=== PATIENT | female | born 1960 | race Caucasian/White ===

== ENCOUNTER 2018-03-26 12:04 | Emergency (ER) | payer OTHER ==
--- NOTE | 2018-03-26 12:24 | ED Physician Documentation ---
PD HPI BACK INJURY - Stated complaint Stated Complaint: LOWER BACK PX - History obtained from History obtained from: Patient - History of Present Illness Location: Lower Type of injury: Other (A large garden planter fell over and she bent over to a right it and felt the pain in her upper lumbar area. She has had prior surgery microdiscectomy in the area. She gets occasional flareups of pain. She denies any lower extremity paresis or paresthesias. She has not had any bowel or bladder incontinence. She states the pain goes from the mid back and the upper lumbar area around both sides and a little bit to the left hip. She has had episodes similar to this in the past that get treated with muscle relaxants and pain medicines. She currently takes medications for fibromyalgia. She saw her primary care for 5 days ago and was prescribed methocarbamol for it but is having spasms anyway.). No: Fall Where injury occurred: Home Timing - onset: How many weeks ago (1) Timing - details: Abrupt onset, Still present, Waxing and waning Quality: Pain, Spasm Worsened by: Moving, Palpating Associated symptoms: No: Fever, Weakness, Numbness, Incontinent of urine Contributing factors: Prior back surgery. No: Anticoagulated, Work related Similar symptoms before: Diagnosis (back spasms and disc problems) Recently seen: Clinic (4 days ago and Rx Robaxin without improvement.) Review of Systems Constitutional: denies: Fever, Chills GI: denies: Abdominal Pain : denies: Incontinent Musculoskeletal: reports: Back pain Neurologic: denies: Generalized weakness, Focal weakness, Numbness PD PAST MEDICAL HISTORY - Past Medical History Cardiovascular: None Respiratory: None Endocrine/Autoimmune: None GI: GERD, Chronic diarrhea, Other : None HEENT: None Psych: Depression, Anxiety, Panic attacks, Claustrophobia Musculoskeletal: Osteoarthritis, Fibromyalgia, Fatigue, Chronic back pain Derm: Psoriasis - Past Surgical History General: Colonoscopy Ortho: Arthroscopic surgery, Carpal Tunnel surgery, Spine surgery, Other HEENT: Tonsil/Adenoidectomy Derm: Skin cancer surgery - Present Medications Home Medications: Ambulatory Orders Medication Instructions Recorded Confirmed Etodolac 500 mg PO BID 07/20/15 03/26/18 LORazepam [Lorazepam] 1 mg PO DAILY 07/20/15 03/26/18 Pregabalin [Lyrica] 150 mg PO BID 07/20/15 03/26/18 Tramadol HCl [Ultram] 50 mg PO QPM 07/20/15 03/26/18 Zolpidem [Ambien] 10 mg PO HS 07/20/15 03/26/18 Cannabis Ointment 1 applic TOP DAILY 03/26/18 Dexamethasone [Decadron] 4 mg PO DAILY #5 tablet 03/26/18 HYDROcod/ACETAM 5/325 [[place] 5/325] 1 tab PO Q6H PRN #20 tablet 03/26/18 Methocarbamol [Robaxin] 3 tab PO Q4H 03/26/18 03/26/18 - Allergies Allergies/Adverse Reactions: Allergies Allergy/AdvReac Type Severity Reaction Status Date / Time No Known Drug Allergies Allergy Verified 03/26/18 12:22 PD ED PE NORMAL - Vitals Vital signs reviewed: Yes - General General: Alert and oriented X 3, No acute distress, Well developed/nourished - Abdomen Abdomen: Soft, Non tender - Back Back: No CVA TTP, Other (tender upper lumbar region both sides. No rash nor sores. No redness. ) - Derm Derm: Normal color, Warm and dry, No rash - Extremities Extremities: Normal ROM s pain, No edema, No calf tenderness / cord - Neuro Neuro: No motor deficit, No sensory deficit Results - Vitals Vitals: Vital Signs - 24 hr 03/26/18 03/26/18 12:06 13:15 Temperature 36.8 C Heart Rate 72 65 Respiratory 16 18 Rate Blood Pressure 143/88 H 134/75 H O2 Saturation 100 98 Oxygen O2 Source Room air PD MEDICAL DECISION MAKING - ED course Complexity details: considered differential (lower back pain without red flags, exac of prior back process. ) Departure - Departure Disposition: 01 Home, Self Care Clinical Impression: Lumbar back sprain Qualifiers: Encounter type: initial encounter Qualified Code(s): S33.5XXA - Sprain of ligaments of lumbar spine, initial encounter Condition: Stable Record reviewed to determine appropriate education?: Yes Instructions: ED Low Back Pain Injury Follow-Up: Carla Cheng PA-C [Primary Care Provider] - Prescriptions: Dexamethasone [Decadron] 4 mg PO DAILY #5 tablet HYDROcod/ACETAM 5/325 [[place] 5/325] 1 tab PO Q6H PRN #20 tablet PRN Reason: Pain Comments: Gentle range of motion with stretching for the back. Heat as feels improvement. Continue usual medications. Add Decadron also for inflammation for the next 5 days. Add hydrocodone if needed for pain. Continue in the physical treatments such as fascial release, massage or chiropractic. Follow- up with your primary care if not improved over the next week or so still. Discharge Date/Time: 03/26/18 13:15
[2018-03-26] MEDS ORDERED: KETOROLAC 60 MG/2 ML VIAL IM STA (12:48)
[2018-03-26] MEDS ORDERED: DEXAMETHASONE 10 MG/ML VIAL PO STA (12:49)
[2018-03-26] MEDS ORDERED: HYDROcod/ACETAM 7.5 MG/325 MG TABLET PO STA (12:49)
[2018-03-26 13:16] VITALS: BP 134/75
== END 2018-03-26 13:15 | disposition home or self-care (01) ==
LOC: ED 12:04
DX: S33.5XXA Sprain of ligaments of lumbar spine, initial encounter (principal); X50.1XXA Overexertion from prolonged static or awkward postures, initial encounter; Y93.89 Activity, other specified; Y92.009 Unspecified place in unspecified non-institutional (private) residence as the place of occurrence of the external cause; M79.7 Fibromyalgia; M19.90 Unspecified osteoarthritis, unspecified site
CPT/HCPCS: 96372; 99283; A9270

== ENCOUNTER 2018-03-30 11:13 | Outpatient (CLI) | payer OTHER ==
--- NOTE | 2018-03-30 17:54 | XRAY Report ---
COMPLETE LUMBAR SPINE: 03/30/2018 CLINICAL INDICATION: Back pain. FINDINGS: AP, lateral, oblique, cone-down views of the lumbar spine demonstrate moderate degenerative disk and facet disease. There is degenerative anterolisthesis of L4 on L5 by approximately 5 mm. There is no evidence of compression fracture. The bowel gas pattern appears unremarkable. IMPRESSION: MODERATE DEGENERATIVE CHANGES, WITH DEGENERATIVE ANTEROLISTHESIS OF L4 ON L5. TD: 03/30/2018 14:35
--- NOTE | 2018-03-30 17:55 | XRAY Report ---
SACRUM AND COCCYX: 03/30/2018 CLINICAL INDICATION: Back pain. FINDINGS: AP, oblique, lateral views of the sacrum and coccyx demonstrate no evidence of acute fracture. The sacral ala are preserved. Mild degenerative changes are seen in the sacroiliac joints and visualized hip joints. IMPRESSION: NO EVIDENCE OF FRACTURE. MILD DEGENERATIVE CHANGES. TD: 03/30/2018 14:36
== END 2018-03-30 11:14 | disposition home or self-care (01) ==
LOC: DI 11:13
PROVIDERS: ATTEND Nurse Practitioner Primary Care
DX: M51.36 Other intervertebral disc degeneration, lumbar region (principal); M43.16 Spondylolisthesis, lumbar region
CPT/HCPCS: 72110; 72220

== ENCOUNTER 2018-04-06 14:16 | Outpatient (CLI) | payer OTHER ==
--- NOTE | 2018-04-08 15:00 | DEXA Report ---
DEXA: 04/06/2018 CLINICAL INDICATION: Postmenopausal. TECHNIQUE: Dual energy x-ray absorptiometry (DXA) was performed on a [employer] system. Regions measured are the AP spine, femoral neck, and, if needed, forearm. COMPARISON: None. In accordance with the International Society for Clinical Densitometry (ISCD) guidelines, data from previous exams may be reanalyzed using current recommendations and techniques. This is done to allow a more accurate basis for comparison with the current study. FINDINGS Data for the lumbar spine is as follows: REGION BMD (g/cm/cm) T-SCORE Z-SCORE L1 0.629 -4.2 -3.2 L2 0.836 -3.0 -2.1 L3 1.033 -1.4 -0.4 L4 0.917 -2.4 -1.4 L1-L4 0.866 -2.6 -1.7 NOTE: All evaluable vertebrae are used for classification. The data for the hip is as follows: REGION BMD (g/cm/cm) T-SCORE Z-SCORE Neck 0.712 -2.3 -1.3 TOTAL 0.781 -1.8 -1.0 NOTE: The femoral neck or total proximal femur, whichever is lowest, is used for classification. IMPRESSION WHO CLASSIFICATION BASED ON THE INTERNATIONAL REFERENCE STANDARD IS OSTEOPOROSIS. FRACTURE RISK IS HIGH. RECOMMENDATION: Patients with diagnosis of osteoporosis or osteopenia should have regular bone mineral density assessment. For those eligible for Medicare, routine testing is allowed once every 2 years. Testing frequency can be increased for patients who have rapidly progressing disease or for those who are receiving medical therapy to restore bone mass. COMMENT World Health Organization (WHO) definitions for osteoporosis and osteopenia: NORMAL BMD: T-score at 1.0 or higher, fracture risk is low. OSTEOPENIA BMD: T-score between 1.0 and -2.5, fracture risk is increased. OSTEOPOROSIS BMD: T-score at 2.5 or lower, fracture risk high. National Osteoporosis Foundation recommends: 1. Obtain adequate dietary calcium (at least 1200 mg per day) and vitamin D (400 -800 international units per day). 2. Participate, as appropriate, in regular weightbearing and muscle- strengthening exercise. 3. Avoid tobacco use and reduce alcohol and caffeine intake. 4. For more detailed information see the website at www.NOF.org. TD: 04/06/2018 15:41 MTDD
== END 2018-04-06 14:17 | disposition home or self-care (01) ==
LOC: DI 14:16
PROVIDERS: ATTEND Physician Assistant
DX: M81.0 Age-related osteoporosis without current pathological fracture (principal); Z78.0 Asymptomatic menopausal state
CPT/HCPCS: 77080

== ENCOUNTER 2018-04-09 14:52 | Outpatient (CLI) | payer OTHER ==
--- NOTE | 2018-04-10 18:41 | Mammography Report ---
DIGITAL SCREENING MAMMOGRAPHY: 04/09/2018 TECHNIQUE: Bilateral digital CC, exaggerated CC and oblique lateral views are obtained. COMPARISON: 10/05/2015, 11/15/2012. FINDINGS: The breast tissue is heterogeneously dense. There is no dominant mass, architectural distortion, skin thickening, suspicious microcalcifications, or interval change. IMPRESSION: NEGATIVE. BIRADS category: 1, negative. Suggest return to routine screening in 12 months. STANDARD QUALIFYING STATEMENTS 1. This examination was reviewed with the aid of Computed-Aided Detection (CAD). 2. A negative or benign imaging report should not delay biopsy if clinically suspicious findings are present. Consider surgical consultation if warranted. More than 5% of cancers are not identified by imaging. 3. Dense breasts may obscure an underlying neoplasm. TD: 04/10/2018 17:24
== END 2018-04-09 14:53 | disposition home or self-care (01) ==
LOC: DI 14:52
PROVIDERS: ATTEND Physician Assistant
DX: Z12.31 Encounter for screening mammogram for malignant neoplasm of breast (principal)
CPT/HCPCS: 77067

== ENCOUNTER 2018-08-31 13:31 | Outpatient (CLI) | payer OTHER ==
[2018-08-31 13:54] LABS: BASOPHILS % (AUTO) 0.7 %; EOSINOPHILS # (AUTO) 0.3 10^3/uL (0.0-0.7); EOSINOPHILS % (AUTO) 4.6 %; HGB - HEMOGLOBIN 12.5 g/dL (12.0-16.0); LYMPHOCYTES # (AUTO) 1.9 10^3/uL (1.5-3.5); LYMPHOCYTES % (AUTO) 32.4 %; MEAN CORPUSCULAR HEMOGLOBIN 32.6 pg (27.0-31.0); MEAN CORPUSCULAR HGB CONC 34.9 g/dL (32.0-36.0); MEAN CORPUSCULAR VOLUME 93.3 fL (81.0-99.0); MONOCYTES # (AUTO) 0.5 10^3/uL (0.0-1.0); MONOCYTES % (AUTO) 9.3 %; PLT - PLATELET COUNT 180 10^3/uL (130-450); RED BLOOD COUNT 3.83 10^6/uL (4.20-5.40); RED CELL DISTRIBUTION WIDTH 13.2 % (12.0-15.0); WHITE BLOOD COUNT 5.7 x10^3/uL (4.8-10.8)
[2018-08-31 14:13] LABS: ALBUMIN 3.9 g/dL (3.2-5.5); ALBUMIN/GLOBULIN RATIO 1.4 (1.0-2.2); ALKALINE PHOSPHATASE 76 IU/L (42-121); ALT ALANINE AMINOTRANSFERASE 37 IU/L (10-60); AST ASPARTATE AMINOTRANSFERASE 30 IU/L (10-42); BILIRUBIN,TOTAL 0.9 mg/dL (0.2-1.0); BUN - BLOOD UREA NITROGEN 11 mg/dL (6-20); CALCIUM 8.9 mg/dL (8.5-10.3); CARBON DIOXIDE - CO2 29 mmol/L (21-32); CHLORIDE 96 mmol/L (101-111); CHOL/HDL RATIO 3.1 (<4.4); CHOLESTEROL 242 mg/dL; CREATININE 0.6 mg/dL (0.4-1.0); GFR - MDRD 102 (>89); GLUCOSE 109 mg/dL (70-100); HDL CHOLESTEROL 78 mg/dL; LDL CHOLESTEROL,CALCULATED 139 mg/dL; LDL/HDL RATIO 1.8 (<4.4); SODIUM 132 mmol/L (135-145); TOTAL PROTEIN 6.6 g/dL (6.7-8.2); VLDL CHOLESTEROL 25 mg/dL
== END 2018-08-31 13:32 | disposition home or self-care (01) ==
LOC: LAB 13:31
PROVIDERS: ATTEND Nurse Practitioner Primary Care
DX: E78.5 Hyperlipidemia, unspecified (principal); Z79.899 Other long term (current) drug therapy; Z13.29 Encounter for screening for other suspected endocrine disorder
CPT/HCPCS: 36415; 80053; 80061; 83721; 84443; 85025

== ENCOUNTER 2019-02-19 11:52 | Outpatient (CLI) | payer OTHER ==
[2019-02-19 19:10] LABS: BASOPHILS % (AUTO) 0.6 %; EOSINOPHILS # (AUTO) 0.3 10^3/uL (0.0-0.7); EOSINOPHILS % (AUTO) 5.1 %; HGB - HEMOGLOBIN 12.9 g/dL (12.0-16.0); MEAN CORPUSCULAR HGB CONC 33.3 g/dL (32.0-36.0); MEAN CORPUSCULAR VOLUME 95.9 fL (81.0-99.0); MEAN PLATELET VOLUME 9.9 fL (7.9-10.8); MONOCYTES # (AUTO) 0.6 10^3/uL (0.0-1.0); MONOCYTES % (AUTO) 8.9 %; NEUTROPHILS # (AUTO) 3.3 10^3/uL (1.5-6.6); NEUTROPHILS % (AUTO) 53.4 %; PLT - PLATELET COUNT 197 10^3/uL (130-450); RED BLOOD COUNT 4.03 10^6/uL (4.20-5.40); RED CELL DISTRIBUTION WIDTH 13.7 % (12.0-15.0); WHITE BLOOD COUNT 6.2 x10^3/uL (4.8-10.8)
[2019-02-19 19:40] LABS: ALBUMIN 3.6 g/dL (3.2-5.5); ALBUMIN/GLOBULIN RATIO 1.2 (1.0-2.2); ALKALINE PHOSPHATASE 73 IU/L (42-121); ALT ALANINE AMINOTRANSFERASE 30 IU/L (10-60); AST ASPARTATE AMINOTRANSFERASE 35 IU/L (10-42); BILIRUBIN,TOTAL 0.5 mg/dL (0.2-1.0); BUN - BLOOD UREA NITROGEN 18 mg/dL (6-20); CARBON DIOXIDE - CO2 30 mmol/L (21-32); CHLORIDE 99 mmol/L (101-111); CHOLESTEROL 214 mg/dL; CREATININE 0.6 mg/dL (0.4-1.0); GFR - MDRD 102 (>89); GLUCOSE 94 mg/dL (70-100); HDL CHOLESTEROL 71 mg/dL; LDL CHOLESTEROL,CALCULATED 115 mg/dL; LDL/HDL RATIO 1.6 (<4.4); SODIUM 136 mmol/L (135-145); TOTAL PROTEIN 6.5 g/dL (6.7-8.2); VLDL CHOLESTEROL 28 mg/dL
== END 2019-02-19 11:53 | disposition home or self-care (01) ==
LOC: LAB.WCP 11:52
PROVIDERS: ATTEND Physician Assistant
DX: Z00.00 Encounter for general adult medical examination without abnormal findings (principal); R03.0 Elevated blood-pressure reading, without diagnosis of hypertension; E78.5 Hyperlipidemia, unspecified
CPT/HCPCS: 36415; 80053; 80061; 83721; 84443; 85025

== ENCOUNTER 2019-06-04 14:06 | Emergency (ER) | payer OTHER ==
--- NOTE | 2019-06-04 14:23 | ED Physician Documentation ---
PD HPI SKIN - Stated complaint Stated Complaint: MED REACTION - Chief complaint Chief Complaint: Allergic Rx - History obtained from History obtained from: Patient - History of Present Illness Timing - onset: Other (She was seen yesterday morning early for a cellulitis of the left lower extremity which is improving placed on Bactrim. Ever since then within a couple of hours taking Bactrim she feels shaky and like she is drunk and has a rapid heart rate subjectively. No rash. The cellulitis is improving. She is adamant that this is a spider bite.) Review of Systems Constitutional: denies: Fever, Chills Throat: reports: Reviewed and negative Cardiac: reports: Reviewed and negative Respiratory: reports: Reviewed and negative PD PAST MEDICAL HISTORY - Past Medical History Cardiovascular: None Respiratory: None Endocrine/Autoimmune: None GI: GERD, Chronic diarrhea, Other : None HEENT: None Psych: Depression, Anxiety, Panic attacks, Claustrophobia Musculoskeletal: Osteoarthritis, Fibromyalgia, Fatigue, Chronic back pain Derm: Psoriasis - Past Surgical History Past Surgical History: Yes General: Colonoscopy Ortho: Arthroscopic surgery, Carpal Tunnel surgery, Spine surgery, Other HEENT: Tonsil/Adenoidectomy Derm: Skin cancer surgery - Present Medications Home Medications: Ambulatory Orders Medication Instructions Recorded Confirmed Etodolac 500 mg PO BID 07/20/15 03/26/18 LORazepam [Lorazepam] 1 mg PO DAILY 07/20/15 03/26/18 Pregabalin [Lyrica] 150 mg PO BID 07/20/15 03/26/18 Tramadol HCl [Ultram] 50 mg PO QPM 07/20/15 03/26/18 Zolpidem [Ambien] 10 mg PO HS 07/20/15 03/26/18 Cannabis Ointment 1 applic TOP DAILY 03/26/18 HYDROcod/ACETAM 5/325 [[place] 5/325] 1 tab PO Q6H PRN #20 tablet 03/26/18 Methocarbamol [Robaxin] 3 tab PO Q4H 03/26/18 03/26/18 dexAMETHasone [Decadron] 4 mg PO DAILY #5 tablet 03/26/18 Sulfamethox/Trimeth 800/160 1 each PO BID #14 tablet 06/02/19 [Bactrim Ds 800/160] Amox/Clav 875/125 [Augmentin] 1 each PO Q12H #10 tablet 06/04/19 - Allergies Allergies/Adverse Reactions: Allergies Allergy/AdvReac Type Severity Reaction Status Date / Time sulfamethoxazole Allergy Anxiety Verified 06/04/19 14:14 [From Bactrim] trimethoprim [From Bactrim] Allergy Anxiety Verified 06/04/19 14:14 - Social History Does the pt smoke?: No Smoking Status: Never smoker Does the pt drink ETOH?: No Does the pt have substance abuse?: No - Immunizations Immunizations are current?: Yes - POLST Patient has POLST: No PD ED PE NORMAL - Vitals Vital signs reviewed: Yes - General General: Alert and oriented X 3, No acute distress - HEENT HEENT: Pharynx benign - Cardiac Cardiac: RRR, No murmur - Respiratory Respiratory: No respiratory distress, Clear bilaterally - Abdomen Abdomen: Non tender - Derm Derm: No rash (No diffuse rash, there is a small area about 3 cm in diameter of what appears to be an allergic reaction that is local to the left medial thigh, no evidence of abscess.) - Neuro Neuro: Alert and oriented X 3, Normal speech Results - Vitals Vitals: Vital Signs - 24 hr 06/04/19 14:07 Temperature 37 C Heart Rate 70 Respiratory 17 Rate Blood Pressure 141/83 H O2 Saturation 97 Oxygen O2 Source Room air PD MEDICAL DECISION MAKING - ED course ED course: She refused steroids based on potential side effects. Departure - Departure Disposition: 01 Home, Self Care Clinical Impression: Medication reaction Qualifiers: Encounter type: initial encounter Qualified Code(s): T50.905A - Adverse effect of unspecified drugs, medicaments and biological substances, initial encounter Condition: Good Record reviewed to determine appropriate education?: Yes Instructions: ED Drug React Allergic Prescriptions: Amox/Clav 875/125 [Augmentin] 1 each PO Q12H #10 tablet Comments: Call your doctor to arrange a follow-up appointment, make the next available appointment. In the interim, return anytime if worse or if new symptoms devel op.
[2019-06-04 14:36] VITALS: BP 141/70
== END 2019-06-04 14:35 | disposition home or self-care (01) ==
LOC: ED 14:06
DX: R44.8 Other symptoms and signs involving general sensations and perceptions (principal); T50.905A Adverse effect of unspecified drugs, medicaments and biological substances, initial encounter
CPT/HCPCS: 99282; 99284

== ENCOUNTER 2019-10-01 09:00 | Outpatient (CLI) | payer OTHER ==
[2019-10-01 18:44] LABS: BASOPHILS % (AUTO) 0.7 %; EOSINOPHILS # (AUTO) 0.2 10^3/uL (0.0-0.7); EOSINOPHILS % (AUTO) 3.8 %; HGB - HEMOGLOBIN 12.2 g/dL (12.0-16.0); LYMPHOCYTES # (AUTO) 1.8 10^3/uL (1.5-3.5); LYMPHOCYTES % (AUTO) 30.4 %; MEAN CORPUSCULAR HEMOGLOBIN 32.1 pg (27.0-31.0); MEAN CORPUSCULAR HGB CONC 33.7 g/dL (32.0-36.0); MEAN CORPUSCULAR VOLUME 95.3 fL (81.0-99.0); MEAN PLATELET VOLUME 10.9 fL (7.9-10.8); MONOCYTES # (AUTO) 0.6 10^3/uL (0.0-1.0); MONOCYTES % (AUTO) 10.4 %; NEUTROPHILS # (AUTO) 3.1 10^3/uL (1.5-6.6); NEUTROPHILS % (AUTO) 54.2 %; PLT - PLATELET COUNT 235 10^3/uL (130-450); RED CELL DISTRIBUTION WIDTH 13.3 % (12.0-15.0); WHITE BLOOD COUNT 5.8 x10^3/uL (4.8-10.8)
[2019-10-01 18:57] LABS: ALBUMIN 4.1 g/dL (3.2-5.5); ALBUMIN/GLOBULIN RATIO 1.4 (1.0-2.2); BILIRUBIN,TOTAL 0.6 mg/dL (0.2-1.0); CALCIUM 8.8 mg/dL (8.5-10.3); CREATININE 0.5 mg/dL (0.4-1.0); TOTAL PROTEIN 7.1 g/dL (6.7-8.2)
== END 2019-10-01 23:59 | disposition home or self-care (01) ==
LOC: LAB.WCP 09:00
PROVIDERS: ATTEND Physician Assistant
DX: Z79.899 Other long term (current) drug therapy (principal); M81.0 Age-related osteoporosis without current pathological fracture
CPT/HCPCS: 36415; 80053; 82306; 85025

== ENCOUNTER 2019-10-01 12:45 | Outpatient (CLI) | payer OTHER ==
--- NOTE | 2019-10-01 17:10 | DEXA Report ---
Reason: ROUTINE MAMMO Procedure Date: 10/01/2019 Accession Number: [id number] / [id number] Procedure: DEX - Dexa Spine and/or Hip CPT Code: Final Report FULL RESULT: EXAM: Dexa Spine and/or Hip DATE: 10/01/2019 1:17 PM CLINICAL HISTORY: Osteoporosis TECHNIQUE: Dual energy x-ray absorptiometry (DXA) was performed on a [employer] System. Regions measured are the AP Spine, femoral neck, and if needed forearm. COMPARISON: 04/06/2018 In accordance with the International Society for Clinical Densitometry (ISCD) guidelines, data from previous exams may be reanalyzed using current recommendations and techniques. This is done to allow a more accurate basis for comparison with the current study. FINDINGS: The data for the lumbar spine is as follows: BMD (g/cm/cm) T-SCORE Z-SCORE REGION L1 0.781 -2.9 -2.0 L2 0.657 -4.5 -3.6 L3 0.840 -3.0 -2.1 L4 0.900 -2.5 -1.6 TOTAL 0.817 -3.0 -2.1 NOTE: All evaluable vertebrae are used for classification The data for the hip is as follows: BMD (g/cm/cm) T-SCORE Z-SCORE REGION Neck 0.681 -2.6 -1.5 TOTAL 0.764 -1.9 -1.2 NOTE: The femoral neck or total proximal femur, whichever is lowest, is used for classification. DXA RESULTS SUMMARY: Spine SCAN DATE AGE BMD CHANGE VS CHANGE VS PREVIOUS PREVIOUS % [birth year]01/2019 59.1 0.817 -0.049* -5.7* 04/06/2018 59.6 0.866 * Denotes significant change at the 95% confidence level. Denotes dissimilar scan types or analysis methods. DXA RESULTS SUMMARY: Hip SCAN DATE AGE BMD CHANGE VS CHANGE VS PREVIOUS PREVIOUS % [birth year]2019 61.1 0.764 -0.017 -2.2 04/06/2018 59.6 0.781 * Denotes significant change at the 95% confidence level. Denotes dissimilar scan types or analysis methods. IMPRESSION: 1. THE WHO CLASSIFICATION BASED ON THE INTERNATIONAL REFERENCE STANDARD IS OSTEOPOROSIS. THE FRACTURE RISK IS HIGH. 2. THERE HAS BEEN A STATISTICALLY SIGNIFICANT DECLINE IN BONE MARROW DENSITY SINCE THE PRIOR STUDY BASED ON DATA FROM THE LUMBAR SPINE. RECOMMENDATION: Patients with diagnosis of osteoporosis or osteopenia should have regular bone mineral density assessment. For those eligible for Medicare, routine testing is allowed once every 2 years. Testing frequency can be increased for patients who have rapidly progressing disease or for those who are receiving medical therapy to restore bone mass. COMMENT: World Health Organization (WHO) definitions for osteoporosis and osteopenia: NORMAL BMD: T-score at -1.0 or higher, fracture risk is low OSTEOPENIA BMD: T-score between -1.0 and -2.5, fracture risk is increased. OSTEOPOROSIS BMD: T-score at -2.5 or lower, fracture risk is high. National Osteoporosis Foundation recommends: 1. Obtain adequate dietary calcium (at least 1200 mg per day) and vitamin D (400-800 international units per day). 2. Participate, as appropriate, in regular weightbearing and muscle-strengthening exercise. 3. Avoid tobacco use and reduce alcohol and caffeine intake. 4. For more detailed information see the website at www.NOF.org.
== END 2019-10-01 12:46 | disposition home or self-care (01) ==
LOC: DI 12:45
PROVIDERS: ATTEND Physician Assistant
DX: M81.0 Age-related osteoporosis without current pathological fracture (principal); Z79.899 Other long term (current) drug therapy
CPT/HCPCS: 36415; 77080; 80053; 82306; 85025

== ENCOUNTER 2020-04-30 12:25 | Outpatient (CLI) | payer OTHER ==
--- NOTE | 2020-04-30 14:05 | XRAY Report ---
Reason: LEFT FOOT PAIN Procedure Date: 04/30/2020 Accession Number: [id number] / [id number] Procedure: WCP - Foot 3 View LT CPT Code: Final Report FULL RESULT: PROCEDURE: Foot 3 View LT INDICATIONS: LEFT FOOT PAIN TECHNIQUE: 3 views of the foot were acquired. COMPARISON: None FINDINGS: Bones: There is a minimally displaced fracture at the distal third metatarsal diaphysis. No other fracture or dislocation. Mild degenerative changes present at the first MTP joint. Soft tissues: No tibiotalar joint effusion. Achilles tendon appears normal. IMPRESSION: 1. Minimally displaced distal left third metatarsal diaphyseal fracture. 2. Mild degenerative change. Reviewed by: Celena Damon MD on 04/30/2020 2:03 PM PDT Approved by: Celena Damon MD on 04/30/2020 2:03 PM PDT Station ID: [id number]
== END 2020-04-30 23:59 | disposition home or self-care (01) ==
LOC: DI.WCP 12:25
PROVIDERS: ATTEND Nurse Practitioner Family
DX: S92.332A Displaced fracture of third metatarsal bone, left foot, initial encounter for closed fracture (principal)

== ENCOUNTER 2020-05-06 12:15 | Outpatient (CLI) | payer OTHER ==
--- NOTE | 2020-05-06 13:09 | XRAY Report ---
Reason: LEFT FOOT FRACTURE Procedure Date: 05/06/2020 Accession Number: [id number] / [id number] Procedure: WCP - Foot 3 View LT CPT Code: Final Report FULL RESULT: PROCEDURE: Foot 3 View LT INDICATIONS: LEFT FOOT FRACTURE TECHNIQUE: 3 views of the foot were acquired. COMPARISON: 04/30/2020 foot radiographs FINDINGS: Bones: Displaced fracture of the left third metatarsal is in unchanged alignment with no evidence of interval healing. Remaining osseous structures intact. Soft tissues: No tibiotalar joint effusion. Achilles tendon appears normal. IMPRESSION: No change in appearance of displaced left third metatarsal fracture. No evidence of interval healing. Unchanged alignment. Reviewed by: Madan Narayanan MD on 05/06/2020 1:08 PM PDT Approved by: Madan Narayanan MD on 05/06/2020 1:08 PM PDT Station ID: [id number]
== END 2020-05-06 23:59 | disposition home or self-care (01) ==
LOC: DI.WCP 12:15
PROVIDERS: ATTEND Physician Assistant
DX: S92.812D Other fracture of left foot, subsequent encounter for fracture with routine healing (principal)

== ENCOUNTER → 2020-08-06 | Outpatient (CLI) | payer OTHER ==
[2020-08-06 18:37] LABS: BASOPHILS % (AUTO) 0.5 %; EOSINOPHILS # (AUTO) 0.2 10^3/uL (0.0-0.7); EOSINOPHILS % (AUTO) 2.5 %; HGB - HEMOGLOBIN 13.1 g/dL (12.0-16.0); LYMPHOCYTES % (AUTO) 31.4 %; MEAN CORPUSCULAR HEMOGLOBIN 32.7 pg (27.0-31.0); MEAN CORPUSCULAR HGB CONC 34.3 g/dL (32.0-36.0); MEAN CORPUSCULAR VOLUME 95.3 fL (81.0-99.0); MEAN PLATELET VOLUME 10.9 fL (7.9-10.8); MONOCYTES # (AUTO) 0.5 10^3/uL (0.0-1.0); MONOCYTES % (AUTO) 8.1 %; NEUTROPHILS # (AUTO) 3.6 10^3/uL (1.5-6.6); NEUTROPHILS % (AUTO) 57.3 %; PLT - PLATELET COUNT 232 10^3/uL (130-450); RED BLOOD COUNT 4.01 10^6/uL (4.20-5.40); RED CELL DISTRIBUTION WIDTH 13.7 % (12.0-15.0); WHITE BLOOD COUNT 6.3 x10^3/uL (4.8-10.8)
[2020-08-06 18:39] LABS: ALBUMIN 4.2 g/dL (3.2-5.5); ALBUMIN/GLOBULIN RATIO 1.4 (1.0-2.2); ALKALINE PHOSPHATASE 69 IU/L (42-121); ALT ALANINE AMINOTRANSFERASE 29 IU/L (10-60); AST ASPARTATE AMINOTRANSFERASE 23 IU/L (10-42); BILIRUBIN,TOTAL 0.5 mg/dL (0.2-1.0); BUN - BLOOD UREA NITROGEN 15 mg/dL (6-20); CALCIUM 9.4 mg/dL (8.5-10.3); CARBON DIOXIDE - CO2 29 mmol/L (21-32); CHLORIDE 96 mmol/L (101-111); CHOL/HDL RATIO 2.7 (<4.4); CHOLESTEROL 197 mg/dL; CREATININE 0.7 mg/dL (0.4-1.0); GLUCOSE 99 mg/dL (70-100); HDL CHOLESTEROL 72 mg/dL; LDL CHOLESTEROL,CALCULATED 97 mg/dL; LDL/HDL RATIO 1.3 (<4.4); SODIUM 133 mmol/L (135-145); TOTAL PROTEIN 7.1 g/dL (6.7-8.2); VLDL CHOLESTEROL 28 mg/dL
== END ==
LOC: LAB.WCP 12:29
PROVIDERS: ATTEND Physician Assistant
DX: Z00.00 Encounter for general adult medical examination without abnormal findings (principal); M79.7 Fibromyalgia; Z13.29 Encounter for screening for other suspected endocrine disorder
CPT/HCPCS: 36415; 80053; 80061; 83721; 84443; 85025

== ENCOUNTER 2020-09-21 11:27 | Outpatient (CLI) | payer OTHER ==
--- NOTE | 2020-09-22 15:08 | Mammography Report ---
BILATERAL DIGITAL DIAGNOSTIC MAMMOGRAM 3D/2D: 09/21/2020 CLINICAL: Diffuse left breast pain. Comparison is made to exams dated: 04/09/2018 mammogram, 10/05/2015 mammogram, and 11/15/2012 mammogram - [facility]. The tissue of both breasts is heterogeneously dense. This may lower the sensitivity of mammography. No significant masses, calcifications, or other findings are seen in either breast. Benign appearing calcifications in the left breast. IMPRESSION: NEGATIVE There is no mammographic evidence of malignancy. No new abnormality in the left breast with diffuse post traumatic pain. Exam findings were conveyed to the patient. Patient is advised to monitor for significant change. A 1 year screening mammogram is recommended. Clinical follow-up as needed. This exam was interpreted at Station ID: [id number]. NOTE: For mammograms, a report in lay terms will be sent to the patient. Approximately 15% of breast malignancies will not be visualized mammographically. In the management of a palpable breast mass, a negative mammogram must not discourage biopsy of a clinically suspicious lesion. Electronically Signed By: Lionel Gray M.D. slc/:09/21/2020 12:03:30 ACR BI-RADS Category 1: Negative 3341F PARENCHYMAL PATTERN: (D) - The breast(s) demonstrate(s) heterogeneously dense fibroglandular daniel hummel. BI-RADS CATEGORY: (1) - 1 RECOMMENDATION: (ANNUAL) - Recommend routine annual screening mammography. [id number] 1 year screening LATERALITY: (B)
== END 2020-09-21 11:28 | disposition home or self-care (01) ==
LOC: DI 11:27
PROVIDERS: ATTEND Physician Assistant
DX: N64.4 Mastodynia (principal)
CPT/HCPCS: 77066

== ENCOUNTER 2020-10-26 08:00 | Outpatient (CLI) | payer OTHER ==
[2020-10-26 21:41] LABS: GLUCOSE, URINE (UA) NEGATIVE (NEGATIVE); KETONES,URINE (UA) NEGATIVE (NEGATIVE); LEUKOCYTE ESTERASE, URINE NEGATIVE (NEGATIVE); NITRITE,URINE NEGATIVE (NEGATIVE); OCCULT BLOOD,URINE NEGATIVE (NEGATIVE); PH,URINE 8.5 PH (5.0-7.5); PROTEIN,URINE NEGATIVE (NEGATIVE); UROBILINOGEN,URINE 0.2 (NORMAL) E.U./dL (NORMAL)
[2020-10-26 21:47] LABS: BILIRUBIN,URINE MODERATE (NEGATIVE); CLARITY,URINE CLEAR (CLEAR); ICTOTEST,URINE POSITIVE
== END 2020-10-26 23:59 ==
LOC: LAB.R 08:00
PROVIDERS: ATTEND Nurse Practitioner
DX: R30.0 Dysuria (principal)
CPT/HCPCS: 81001; 81003; 87086

== ENCOUNTER 2021-07-09 08:54 | Day surgery (SDC) | payer OTHER ==
[2021-07-09] MEDS ORDERED: LACTATED RINGERS 1,000 ML IV ONE ×2 (08:59→11:14)
--- NOTE | 2021-07-09 09:34 | ANESTHESIA ---
Pre-Anesthesia VS, & Labs - Diagnosis screening colonoscopy - Procedure colonoscopy Vital Signs: Temp Pulse Resp BP Pulse Ox 36.1 C L 66 14 125/79 100 07/09/21 09:05 07/09/21 09:05 07/09/21 09:05 07/09/21 09:05 07/09/21 09:05 Height: 5 ft 5 in Weight (kg): 61.5 kg Body Mass Index: 22.5 BMI Classification: Healthy weight - NPO >8 hours - Is Patient ?: No Home Medications and Allergies Home Medications: Ambulatory Orders Ascorbic Acid [Vitamin C] 1,000 mg PO DAILY 07/08/21 Calcium Carbonate/Vitamin D3 [Calcium 250-Vit D3 125 Tablet] 600 mg PO BID 07/08/21 DULoxetine [Cymbalta] 30 mg PO BID 07/08/21 Magnesium 250 mg PO DAILY 07/08/21 Tumeric/Ging/[place]/Oreg/Capryl [Candicidal Capsule] 1 each PO DAILY 07/08/21 Zinc Gluconate [Zinc] 30 mg PO DAILY 07/08/21 Etodolac 500 mg PO BID 07/20/15 LORazepam [Lorazepam] 1 mg PO DAILY 07/20/15 Pregabalin [Lyrica] 150 mg PO BID 07/20/15 Tramadol HCl [Ultram] 50 mg PO QPM 07/20/15 Zolpidem [Ambien] 10 mg PO HS 07/20/15 Cannabis Ointment 1 applic TOP DAILY 03/26/18 Ascorbic Acid [Vitamin C] 1,000 mg PO DAILY 07/08/21 Calcium Carbonate/Vitamin D3 [Calcium 250-Vit D3 125 Tablet] 600 mg PO BID 07/08/21 DULoxetine [Cymbalta] 30 mg PO BID 07/08/21 Magnesium 250 mg PO DAILY 07/08/21 Tumeric/Ging/[place]/Oreg/Capryl [Candicidal Capsule] 1 each PO DAILY 07/08/21 Zinc Gluconate [Zinc] 30 mg PO DAILY 07/08/21 Allergies/Adverse Reactions: Allergies Allergy/AdvReac Type Severity Reaction Status Date / Time sulfamethoxazole Allergy Anxiety Verified 06/04/19 14:14 [From Bactrim] trimethoprim [From Bactrim] Allergy Anxiety Verified 06/04/19 14:14 Anes History & Medical History - Anesthetic History Anesthesia Complications: reports: No previous complications - Medical History Cardiovascular: reports: None Pulmonary: reports: None Gastrointestinal: reports: GERD, Other Urinary: reports: Frequency Musculoskeletal: reports: Osteoarthritis, Fibromyalgia, Fatigue, Chronic back pain Endocrine/Autoimmune: reports: None Skin: reports: Other Smoking Status: Never smoker History of Cancer?: Yes - Surgical History General: reports: Colonoscopy Eyes Ears Nose Throat (EENT): reports: Tonsil/Adenoidectomy Orthopedic: reports: Other Dermatologic: reports: Skin cancer surgery Exam General: Alert, Oriented x3 Dental: WNL Mouth Opening: Greater than 4 Fingerbreadths Neck Mobility: Normal Mallampati classification: II Respiratory: Lungs clear Cardiovascular: Regular rate Plan Anesthesia Type: Total IV Consent for Procedure(s) Verified and Reviewed: Yes Code Status: Attempt Resuscitation ASA classification: 2-Mild systemic disease Is this case an emergency?: No
[2021-07-09] MEDS ORDERED: MIDAZOLAM 2 MG/2 ML VIAL ONE (09:49)
--- NOTE | 2021-07-09 09:57 | HISTORY & PHYSICAL EXAMINATION ---
Chief Complaint - Chief Complaint Chief Complaint: here for colon cancer screening History of Present Illness - History Obtained From Records Reviewed: yes History obtained from: pt Exam Limitations: none - History of Present Illness HPI Comment/Other: Here for colon cancer screening. No anemia. History - Past Medical History Cardiovascular: reports: None Respiratory: reports: None Endocrine/Autoimmune: reports: None GI: reports: GERD, Other : reports: Frequency HEENT: reports: None Psych: reports: Depression, Anxiety, Panic attacks, Claustrophobia Musculoskeletal: reports: Osteoarthritis, Fibromyalgia, Fatigue, Chronic back pain Derm: reports: Other MRSA Hx?: No - Past Surgical History General: reports: Colonoscopy Ortho: reports: Other HEENT: reports: Tonsil/Adenoidectomy Derm: reports: Skin cancer surgery - POLST Patient has POLST: No Meds/Allgy - Home Medications Home Medications: Ambulatory Orders Medication Instructions Recorded Confirmed Etodolac 500 mg PO BID 07/20/15 07/08/21 LORazepam [Lorazepam] 1 mg PO DAILY 07/20/15 07/09/21 Pregabalin [Lyrica] 150 mg PO BID 07/20/15 07/08/21 Tramadol HCl [Ultram] 50 mg PO QPM 07/20/15 07/08/21 Zolpidem [Ambien] 10 mg PO HS 07/20/15 07/08/21 Cannabis Ointment 1 applic TOP DAILY 03/26/18 07/08/21 Ascorbic Acid [Vitamin C] 1,000 mg PO DAILY 07/08/21 07/08/21 Calcium Carbonate/Vitamin D3 600 mg PO BID 07/08/21 07/08/21 [Calcium 250-Vit D3 125 Tablet] DULoxetine [Cymbalta] 30 mg PO BID 07/08/21 07/08/21 Magnesium 250 mg PO DAILY 07/08/21 07/08/21 Tumeric/Ging/[place]/Oreg/Capryl 1 each PO DAILY 07/08/21 07/08/21 [Candicidal Capsule] Zinc Gluconate [Zinc] 30 mg PO DAILY 07/08/21 07/08/21 - Allergies Allergies/Adverse Reactions: Allergies Allergy/AdvReac Type Severity Reaction Status Date / Time sulfamethoxazole Allergy Anxiety Verified 06/04/19 14:14 [From Bactrim] trimethoprim [From Bactrim] Allergy Anxiety Verified 06/04/19 14:14 Review of Systems - Other Findings Other Findings: 10 pt ros as above otherwise unremarkable Exam - Vital Signs Reviewed Vital Signs: Yes Vital Signs: Vital Signs x48h Temp Pulse Resp BP Pulse Ox 07/09/21 09:05 36.1 C L 66 14 125/79 100 - Physical Exam General Appearance: positive: Alert Eyes Bilateral: positive: PERRL, EOMI ENT: positive: No signs of dehydration Neck: positive: No JVD Respiratory: positive: No respiratory distress, Breath sounds nml Cardiovascular: positive: Regular rate & rhythm Abdomen: positive: Non-tender, No distention Neurologic/Psychiatric: positive: Oriented x3 Conclusion/Plan - Problem List (1) Colon cancer screening Conclusion/Plan: Plan colonscopy. parq held and consent obtained
[2021-07-09] MEDS ORDERED: GLYCOPYRROLATE 1 MG/5 ML VIAL ONE (10:53)
[2021-07-09] MEDS ORDERED: PROPOFOL 1000 MG/100 ML 1,000 MG/100 ML BOTTLE IV ONE (10:53)
[2021-07-09] MEDS ORDERED: LACTATED RINGERS 75 ML IV ONE (11:05)
[2021-07-09] MEDS ORDERED: IOVERSOL 320 50 ML VIAL ONE (13:02)
--- NOTE | 2021-07-09 13:14 | ANESTHESIA POST OP EVALUATION ---
Anesthesia Post Eval - Post Anesthesia Eval Vitals: Last Vital Signs Temp 36.2 C L 07/09/21 12:45 Pulse 88 07/09/21 12:45 Resp 12 07/09/21 12:45 BP 108/69 07/09/21 12:45 Pulse Ox 99 07/09/21 12:45 CV Function Including HR & BP: Stable Pain Control: Satisfactory Nausea & Vomiting: Negative Mental Status: Baseline Respiratory Status: Airway Patent Hydration Status: Satisfactory Anesthesia Complications: None
[2021-07-09] MEDS ORDERED: IOVERSOL 320 50 ML VIAL PR ONE (13:40)
--- NOTE | 2021-07-09 13:58 | CT Report ---
PROCEDURE: Abdomen/Pelvis WO INDICATIONS: incomplete colonoscopy TECHNIQUE: After infusion of rectal contrast, 5 mm thick sections acquired from the diaphragms to the symphysis. 5 mm coronal and sagittal reformats were then performed. For radiation dose reduction, the followi ng was used: automated exposure control, adjustment of mA and/or kV according to patient size. COMPARISON: None. FINDINGS: Image quality: Excellent. ABDOMEN: Lung bases: Scarring/atelectasis in posterior medial aspect of right lung base is seen. Scattered ate lectasis in lateral periphery of left lung base is also noted. Heart size is normal. Solid organs: Liver and spleen are normal in size. Gallbladder is distended and shows no gross abno rmality Pancreas is normal in contours. No adrenal nodules. Kidneys are normal in size, without hy dronephrosis or nephrolithiasis. Peritoneum and bowel: There is normal contrast distention of rectum, sigmoid colon, descending colon, transverse colon and ascending colon extending to the cecum/ileocecal junction. No contrast reflux i nto the terminal ileum is noted. Redundant sigmoid colon is seen. No large intraluminal filling defec t is seen. No contrast extravasation. No mesenteric fat stranding or abnormal bowel wall thickening. Unopacified stomach and small bowel show no gross abnormality. No free fluid or free air. Nodes and vessels: No retroperitoneal or mesenteric adenopathy by size criteria. Aorta and inferior vena cava are normal in caliber. Miscellaneous: No ventral hernias. PELVIS: Genitourinary: Bladder wall thickness is normal. Miscellaneous: No inguinal hernias or adenopathy. Bones: No suspicious bony lesions. Chronic-appearing superior endplate compression deformities are n oted at L2-L5 levels with grade 1 anterolisthesis of L4 on L5. No gross pars defect is seen. Degenera tive disc disease throughout lumbar spine is seen. IMPRESSION: 1. Normal contrast distention of the colon without gross intraluminal filling defect or contrast extr avasation. Redundant sigmoid colon. No abnormal bowel wall thickening or mesenteric fat stranding. No free fluid or free air. 2. Bibasilar scarring/atelectasis. 3. No renal stone or hydronephrosis. 4. Chronic-appearing compression deformities involving L2-L5 vertebral bodies as described above. Deg enerative disc disease throughout lower thoracic and lumbar spine. Grade 1 anterolisthesis of L4. Reviewed by: Dyllan Kimball MD on 07/09/2021 1:57 PM PDT Approved by: Dyllan Kimball MD on 07/09/2021 1:57 PM PDT Station ID: [id number]
[2021-07-09 14:48] VITALS: BP 130/67
== END 2021-07-09 08:55 | disposition home or self-care (01) ==
LOC: SDS 08:54
PROVIDERS: ATTEND Surgery
PROC: 0DBN8ZZ Excision of Sigmoid Colon, Via Natural or Artificial Opening Endoscopic (ICD-10-PCS; principal; 2021-07-09 10:30)
DX: Z12.11 Encounter for screening for malignant neoplasm of colon (principal); K63.5 Polyp of colon; F41.9 Anxiety disorder, unspecified; G89.29 Other chronic pain; J45.909 Unspecified asthma, uncomplicated
CPT/HCPCS: 45385; 74176; J7120

== ENCOUNTER 2021-08-06 07:00 | Outpatient (CLI) | payer OTHER | END 2021-08-06 23:59 | disposition home or self-care (01) | LOC: LAB 07:00 | PROVIDERS: ATTEND Nurse Practitioner | DX: R09.81 Nasal congestion (principal); Z20.822 Contact with and (suspected) exposure to COVID-19 ==